=== PATIENT | female | born 1935 | race Caucasian/White ===

== ENCOUNTER 2017-08-03 11:43 | Outpatient (CLI) | payer MEDICARE, OTHER ==
--- NOTE | 2017-08-03 15:29 | RAD ---
PA AND LATERAL CHEST: Date: 08/03/17 HISTORY: Follow-up pneumonia and CHF. COMPARISON: 05/07/17. FINDINGS: Dual lead left subclavian cardiac pacemaking device remains in place. Cardiac silhouette and pulmonar y vasculature are within normal limits. Pleural and parenchymal changes are again seen at the right l morelia base with increased bibasilar interstitial densities noted. These findings have not significantly changed or progressed when compared to the prior study and may be related to chronic interstitial heidy ng changes. Findings at the right lung base are related to either pleural and parenchymal scarring or secondary to a right pleural effusion, some of which could be loculated. No other interval change. IMPRESSION: 1. Persistent pleural and parenchymal changes right lung base, which may be related to either a stab le right pleural effusion, some of which could be loculated, with associated atelectasis versus chron ic pleural and parenchymal scarring. 2. Chronic bibasilar interstitial changes. 3. Mild cardiomegaly without overt CHF. POS: DENNIS
== END 2017-08-03 11:44 | disposition home or self-care (01) ==
LOC: RAD 11:43
PROVIDERS: ATTEND Internal Medicine Cardiovascular Disease
DX: I50.32 Chronic diastolic (congestive) heart failure (principal); Z51.81 Encounter for therapeutic drug level monitoring; I48.91 Unspecified atrial fibrillation; I51.7 Cardiomegaly; Z79.01 Long term (current) use of anticoagulants
CPT/HCPCS: 36415; 71020; 80048

== ENCOUNTER 2018-01-15 13:35 | Emergency (ER) | payer MEDICARE, OTHER ==
[2018-01-15 14:26] LABS: #Eosinphils 0.2 thou/uL (0.0-0.7); #Lymphocytes 1.1 thou/uL (1.20-3.40); #Monocytes 0.7 thou/uL (0.11-0.59); #Neutrophils 8.4 thou/uL (1.40-6.50); %Basophils 0.1 % (0.0-1.0); %Eosinophils 1.7 % (0.0-10.0); %Lymphocytes 10.4 % (21.0-51.0); %Monocytes 6.8 % (0.0-10.0); Hemoglobin 11.4 g/dL (12.0-16.0); Mean Corpuscular HGB CONC 31.7 g/dL (32.0-36.0); Mean Corpuscular Hemoglobin 31.4 pg (27.0-31.0); Mean Platelet Volume 6.5 fL (7.4-10.4); Platelet Count 280 thou/uL (130-400); RBC Distribution Width 15.8 % (11.5-14.5); Red Blood Cell (RBC) Count 3.64 mill/uL (4.20-5.40); White Blood Cell (WBC) Count 10.3 thou/uL (4.8-10.8)
--- NOTE | 2018-01-15 14:30 | RAD ---
RIGHT HIP TWO VIEWS: History: Hip pain. Comparison: None. FINDINGS: No acute fracture or malalignment. Mild enthesopathic changes. Greater trochanter and ischial tuberos ity. Bones are osteopenic. IMPRESSION: No acute fracture or malalignment. Mild osteopenia. POS: FOX
[2018-01-15 14:33] LABS: Bilirubin Negative (Negative); Blood, Urine Negative (Negative); Clarity CLEAR (Clear); Glucose, Urine (Dipstick) Negative (Negative); Leukocyte Negative (Negative); Nitrite Negative (Negative); Protein, Urine (Dipstick) Negative (Neg-Trace); Specific Gravity, Urine 1.008 (1.002-1.036); Urobilinogen 0.2 mg/dL (0.2-1.0)
[2018-01-15 14:44] LABS: ALT (SGPT) 9 U/L (8-55); AST (SGOT) 18 U/L (5-34); Albumin 3.7 g/dL (3.4-4.8); Alkaline Phosphatase 94 U/L (40-150); Anion Gap 12 mmol/L (10-20); BUN (Urea Nitrogen) 31 mg/dL (9.8-20.1); CK (CPK) 38 U/L (29-168); Calc. Creatinine Clearance 0 mL/min (70-130); Calcium 9.6 mg/dL (7.8-10.44); Carbon Dioxide 34 mmol/L (23-31); Chloride 97 mmol/L (98-107); Estimated GFR-MDRD 38; Globulin 3.4 g/dL (2.4-3.5); Glucose 125 mg/dL (83-110); Potassium 3.6 mmol/L (3.5-5.1); Protein, Total 7.1 g/dL (6.0-8.3); Sodium 139 mmol/L (136-145)
[2018-01-15 14:50] LABS: CKMB 1.1 ng/mL (0-6.6); Troponin I Less than 0.010 ng/mL (< 0.028)
[2018-01-15] MEDS ORDERED: Ketorolac Tromethamine 30 MG/ML VIAL ONE (14:54)
== END 2018-01-15 16:18 | disposition home or self-care (01) ==
LOC: ERS 13:35
DX: M25.551 Pain in right hip (principal); I25.10 Atherosclerotic heart disease of native coronary artery without angina pectoris; I48.91 Unspecified atrial fibrillation; F41.9 Anxiety disorder, unspecified; Z87.891 Personal history of nicotine dependence; Z79.82 Long term (current) use of aspirin; Z79.899 Other long term (current) drug therapy
CPT/HCPCS: 80053; 81003; 82553; 83880; 84484; 85025; 93005; 94760; 96374; J1885